=== PATIENT | male | born 1980 | race Hispanic/Latino ===

== ENCOUNTER 2017-11-28 17:40 | Emergency (ER) | payer OTHER | END 2017-11-28 18:24 | disposition home or self-care (01) | LOC: EDH 17:40 | DX: S39.012A Strain of muscle, fascia and tendon of lower back, initial encounter (principal); V89.2XXA Person injured in unspecified motor-vehicle accident, traffic, initial encounter; Y93.89 Activity, other specified; Y92.89 Other specified places as the place of occurrence of the external cause; Y99.8 Other external cause status | CPT/HCPCS: 99281 ==

== ENCOUNTER 2020-02-08 07:57 | Inpatient (IN) | payer SELFPAY ==
[~2020-02-08] VITALS: Ht 170.2 cm; Wt 91.0 kg
[2020-02-08 09:33] LABS: BASOPHILS % (AUTO) 0.3 % (0.0-5.0); EOSINOPHILS % (AUTO) 0.2 % (0.0-8.0); HEMATOCRIT 46.1 % (42-54); LYMPHOCYTES % (AUTO) 6.3 % (21.0-51.0); MEAN CORPUSCULAR HGB CONC 31.9 g/dL (32.0-36.0); MEAN CORPUSCULAR VOLUME 84.7 fL (79-99); MONOCYTES % (AUTO) 5.1 % (3.0-13.0); NEUTROPHILS % (AUTO) 87.9 % (40.0-77.0); PLATELET COUNT (AUTO) 179 K/uL (130-400); RED BLOOD CELL COUNT(AUTO) 5.44 MIL/uL (4.50-6.20); RED CELL DISTRIBUTION WIDTH 13.5 % (11.0-15.5); WHITE BLOOD COUNT (AUTO) 10.3 K/uL (4.8-10.8)
[2020-02-08 09:57] LABS: CREATININE 2.3 mg/dL (0.5-1.5); POTASSIUM 3.2 mmol/L (3.5-5.1)
[2020-02-08 10:02] LABS: ALBUMIN 2.6 g/dL (3.5-5.0); BILIRUBIN,TOTAL 3.6 mg/dL (0.2-1.0); TOTAL PROTEIN, SERUM 6.7 g/dL (6.0-8.3)
[2020-02-08] MEDS ORDERED: ZOSYN 3.375GM+NS 50ML 50 ML IV ONE ×2 (12:45→18:33)
[2020-02-08 13:43] LABS: CHOLESTEROL 265 mg/dL (<200); HDL CHOLESTEROL 122 mg/dL (29-71); LDL DIRECT 187 mg/dL (0-99); TRIGLYCERIDES 118 mg/dL (30-200)
[2020-02-08] MEDS ORDERED: HYDRALAZINE HCL 20 MG/ML VIAL IV PRN (14:00)
[2020-02-08 14:23] LABS: HEMOGLOBIN A1C 8.1 % (4.0-6.0)
[2020-02-08] MEDS ORDERED: HYDRALAZINE HCL 25 MG TABLET ONE (14:33)
[2020-02-08] MEDS ORDERED: AMLODIPINE BESYLATE 5 MG TAB ONE (14:33)
[2020-02-08] MEDS: HYDRALAZINE HCL 25 MG TABLET PO SCH ×2 (15:00→20:12)
[2020-02-08] MEDS: FOLIC ACID/VITAMIN B COMP W-C 1 CAP TAB PO SCH (15:15)
[2020-02-08 15:16] LABS: URIC ACID 6.2 mg/dL (2.6-7.2)
[2020-02-08] MEDS ORDERED: AMLODIPINE BESYLATE 5 MG TAB PO SCH (15:30)
[2020-02-08] MEDS ORDERED: INSULIN GLARGINE 100 UNITS/ML 10 ML VIAL SQ ONE (15:30)
[2020-02-08 16:15] VITALS: BP 145/95
[2020-02-08] MEDS ORDERED: INSULIN HUMULIN R 100 UNIT/ML 3ML SQ SCH (16:30)
[2020-02-08] MEDS: INSULIN HUMULIN R 100 UNIT/ML 3ML SQ SCH ×2 (16:30→21:42)
[2020-02-08] MEDS ORDERED: MORPHINE SULFATE 2 MG/ML 1ML SYG IM PRN (17:00)
[2020-02-08] MEDS ORDERED: TRAMADOL HCL 50 MG TABLET PO PRN (17:00)
[2020-02-08] MEDS ORDERED: SODIUM CHLORIDE 0.9% 1000ML 1,000 ML IV SCH (17:00)
[2020-02-08] MEDS ORDERED: LACTULOSE 20 GM/30 ML UDCUP PO PRN (17:00)
[2020-02-08] MEDS ORDERED: ONDANSETRON HCL 4 MG/2 ML VIAL IV PRN (17:00)
[2020-02-08] MEDS ORDERED: IPRATROPIUM/ALBUTEROL SULFATE 3 ML SOLUTION IH SCH (18:00)
[2020-02-08] MEDS ORDERED: POTASSIUM CHLORIDE 10% ELIXIR 20 MEQ/15 ML UDCUP PO PRN (19:00)
[2020-02-08] MEDS ORDERED: LIDOCAINE HCL-MPF 1% 2ML VIAL IV PRN (19:00)
[2020-02-08] MEDS ORDERED: POTASSIUM CHLORIDE 10MEQ/100ML 100 ML IV PRN (19:00)
[2020-02-08 19:45] VITALS: BP 153/98
[2020-02-08] MEDS: ZOSYN 3.375GM+NS 50ML 50 ML IV SCH (20:10)
[2020-02-08] MEDS: POTASSIUM CHLORIDE 20 MEQ ERTAB PO PRN ×2 (20:11→23:02)
[2020-02-08 23:17] LABS: APPEARANCE,URINE Clear (CLEAR); BILIRUBIN,URINE Small (NEGATIVE); COLOR,URINE Dark Yellow (YELLOW); GLUCOSE, URINE (UA) 250 mg/dL (NEGATIVE); KETONES,URINE Negative (NEGATIVE); LEUKOCYTE ESTERASE ,URINE Negative (NEGATIVE); NITRATE,URINE Negative (NEGATIVE); OCCULT BLOOD,URINE Negative (NEGATIVE); PH,URINE 5.5 (5.0-8.0); PROTEIN,URINE >=1000 mg/dL (NEGATIVE)
[2020-02-08 23:34] LABS: RBC,URINE 0-1 /HPF (0-1); WBC,URINE 0-1 /HPF (0-1)
[2020-02-08 23:35] LABS: BACTERIA,URINE Rare /HPF (None Seen)
[2020-02-09] VITALS (7 sets, daily range): BP systolic 130–152; BP diastolic 78–97
[2020-02-09] MEDS: POTASSIUM CHLORIDE 20 MEQ ERTAB PO PRN (01:01)
[2020-02-09] MEDS: LACTATED RINGERS 1000ML 1,000 ML IV SCH ×4 (01:02→17:30)
[2020-02-09 02:16] LABS: CREATININE,URINE RANDOM 169 mg/dL (30-135); SODIUM,URINE RANDOM 103 mmol/l (40-220)
[2020-02-09] MEDS: ZOSYN 3.375GM+NS 50ML 50 ML IV SCH ×3 (03:16→20:28)
[2020-02-09] MEDS: INSULIN HUMULIN R 100 UNIT/ML 3ML SQ SCH ×4 (04:30→20:34)
[2020-02-09 05:21] LABS: BASOPHILS % (AUTO) 0.5 % (0.0-5.0); EOSINOPHILS % (AUTO) 3.1 % (0.0-8.0); HEMATOCRIT 40.1 % (42-54); LYMPHOCYTES % (AUTO) 20.1 % (21.0-51.0); MEAN CORPUSCULAR HGB CONC 31.4 g/dL (32.0-36.0); MEAN CORPUSCULAR VOLUME 86.1 fL (79-99); MONOCYTES % (AUTO) 7.7 % (3.0-13.0); NEUTROPHILS % (AUTO) 68.4 % (40.0-77.0); PLATELET COUNT (AUTO) 174 K/uL (130-400); RED BLOOD CELL COUNT(AUTO) 4.66 MIL/uL (4.50-6.20); RED CELL DISTRIBUTION WIDTH 13.6 % (11.0-15.5); WHITE BLOOD COUNT (AUTO) 8.5 K/uL (4.8-10.8)
[2020-02-09 05:57] LABS: BILIRUBIN,TOTAL 0.7 mg/dL (0.2-1.0); CREATININE 2.2 mg/dL (0.5-1.5); MAGNESIUM 1.6 mg/dL (1.80-2.40); PHOSPHORUS 2.7 mg/dL (2.5-4.9); POTASSIUM 3.6 mmol/L (3.5-5.1); TOTAL PROTEIN, SERUM 5.4 g/dL (6.0-8.3)
[2020-02-09] MEDS ORDERED: FOLIC ACID/VITAMIN B COMP W-C 1 CAP TAB PO SCH (09:00)
[2020-02-09] MEDS: FOLIC ACID/VITAMIN B COMP W-C 1 CAP TAB PO SCH (09:25)
[2020-02-09] MEDS: HYDRALAZINE HCL 25 MG TABLET PO SCH ×2 (09:25→20:27)
[2020-02-09] MEDS: ENOXAPARIN SODIUM 30 MG/0.3 ML SQ SCH (09:26)
[2020-02-09] MEDS: FAMOTIDINE/PF 20 MG/2 ML VIAL IV SCH (09:26)
[2020-02-09] MEDS: AMLODIPINE BESYLATE 5 MG TAB PO SCH (09:26)
[2020-02-09] MEDS ORDERED: MAGNESIUM 2GM PREMIX 50ML 50 ML IV ONE ×2 (14:15→15:45)
--- NOTE | 2020-02-09 18:22 | NUR ---
cm note met with patient and states resides athome alone, independent with adls and self care. 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 dc plan is back home at co. no dc needs. Addendum: 02/09/20 at 1822 by MAYO CASILLAS CM Amended: Links added. Addendum: 02/09/20 at 1823 by MAYO CASILLAS CM provided pt with community resource clinics and rx assist programs in the area. pt verbalizes understanding. states will followup with md at co.
[2020-02-10] MEDS: LACTATED RINGERS 1000ML 1,000 ML IV SCH ×2 (00:08→10:10)
[2020-02-10] MEDS: ZOSYN 3.375GM+NS 50ML 50 ML IV SCH ×2 (02:57→12:30)
[2020-02-10 04:00] VITALS: BP 136/88
[2020-02-10] MEDS: INSULIN HUMULIN R 100 UNIT/ML 3ML SQ SCH ×2 (04:30→10:30)
[2020-02-10 06:05] LABS: BASOPHILS % (AUTO) 0.3 % (0.0-5.0); EOSINOPHILS % (AUTO) 3.2 % (0.0-8.0); HEMATOCRIT 38.6 % (42-54); MEAN CORPUSCULAR HEMOGLOBIN 27.3 pg (27.0-33.0); MEAN CORPUSCULAR HGB CONC 31.9 g/dL (32.0-36.0); MEAN CORPUSCULAR VOLUME 85.8 fL (79-99); MONOCYTES % (AUTO) 7.5 % (3.0-13.0); NEUTROPHILS % (AUTO) 70.7 % (40.0-77.0); PLATELET COUNT (AUTO) 171 K/uL (130-400); RED CELL DISTRIBUTION WIDTH 13.5 % (11.0-15.5); WHITE BLOOD COUNT (AUTO) 8.9 K/uL (4.8-10.8)
[2020-02-10 06:28] LABS: CREATININE 2.1 mg/dL (0.5-1.5); MAGNESIUM 1.9 mg/dL (1.80-2.40); POTASSIUM 3.1 mmol/L (3.5-5.1)
[2020-02-10] MEDS ORDERED: POTASSIUM CHLORIDE 20 MEQ ERTAB PO SCH (07:00)
[2020-02-10 08:00] VITALS: BP 151/92
[2020-02-10 08:26] LABS: ALBUMIN 2.1 g/dL (3.5-5.0); BILIRUBIN,DIRECT 0.1 mg/dL (0.0-0.3); BILIRUBIN,TOTAL 0.4 mg/dL (0.2-1.0); TOTAL PROTEIN, SERUM 5.4 g/dL (6.0-8.3)
[2020-02-10] MEDS: HYDRALAZINE HCL 25 MG TABLET PO SCH (08:39)
[2020-02-10] MEDS: AMLODIPINE BESYLATE 5 MG TAB PO SCH (08:39)
[2020-02-10] MEDS: FAMOTIDINE/PF 20 MG/2 ML VIAL IV SCH (08:39)
[2020-02-10] MEDS: FOLIC ACID/VITAMIN B COMP W-C 1 CAP TAB PO SCH (08:40)
[2020-02-10] MEDS: ENOXAPARIN SODIUM 30 MG/0.3 ML SQ SCH (08:40)
[2020-02-10] MEDS ORDERED: AMLO5TAB4 PO (13:22)
[2020-02-10] MEDS ORDERED: HYDR25 PO (13:22)
--- NOTE | 2020-02-10 17:27 | NUR ---
PATIENT DISCHARGE PATIENT DISCHARGED, IV DISCONTINUED, CATHLON INTACT, BLEEDING CONTROLLED, PATIENT TOLERATED WITHOUT INCIDENT. DISCUSSED WITH PATIENT THE NEED TO FOLLOW UP WITH DR. FISH AND FOR HIM TO CALL TO SCHEDULE APPOINTMENT. ADVISED PATIENT PRESCRIPTIONS WERE SENT ELECTRONICALLY TO [facility] ON [address] IN [place].
== END 2020-02-10 17:25 | disposition home or self-care (01) | DRG 445 ==
LOC: EDH 07:57 → EDHIP 07:58 → 3CH 15:59
PROVIDERS: ADMIT Internal Medicine; ATTEND Internal Medicine
DX: K80.70 Calculus of gallbladder and bile duct without cholecystitis without obstruction (principal); N17.9 Acute kidney failure, unspecified; B17.9 Acute viral hepatitis, unspecified; I16.0 Hypertensive urgency; E87.6 Hypokalemia; D64.9 Anemia, unspecified; K75.89 Other specified inflammatory liver diseases; E88.81 Metabolic syndrome and other insulin resistance; I10 Essential (primary) hypertension; E11.65 Type 2 diabetes mellitus with hyperglycemia; E66.9 Obesity, unspecified; E78.5 Hyperlipidemia, unspecified; Z68.31 Body mass index [BMI] 31.0-31.9, adult; Z83.3 Family history of diabetes mellitus; Z82.49 Family history of ischemic heart disease and other diseases of the circulatory system
CPT/HCPCS: 36415; 74181; 76705; 76770; 80048; 80053; 80061; 80074; 80076; 81001; 82150; 82570; 82948; 83036; 83605; 83690; 83735; 84100; 84145; 84156; 84300; 84443; 84484; 84550; 85025; 87040; 93005; G0378; J1650; J2543; J3475; J3490; J7120

== ENCOUNTER 2022-10-01 07:54 | Inpatient (IN) | payer OTHER ==
[~2022-10-01] VITALS: Ht 167.6 cm; Wt 99.4 kg
[~2022-10-01 07:54] MED LIST: AMLO5TAB4 PO; HYDR25 PO
[2022-10-01] MEDS ORDERED: ONDANSETRON 4MG INJ ONE (08:14)
[2022-10-01] MEDS ORDERED: ONDANSETRON 4MG INJ IVP ONE (08:30)
[2022-10-01] MEDS ORDERED: ACETAMINOPHEN 500 MG TABLET PO ONE (08:30)
[2022-10-01 08:34] LABS: BASOPHILS % (AUTO) 0.2 % (0.0-5.0); EOSINOPHILS % (AUTO) 0.3 % (0.0-8.0); HEMATOCRIT 30.9 % (42-54); LYMPHOCYTES % (AUTO) 1.1 % (21.0-51.0); MEAN CORPUSCULAR HEMOGLOBIN 27.2 pg (27.0-33.0); MEAN CORPUSCULAR HGB CONC 32.7 g/dL (32.0-36.0); MEAN CORPUSCULAR VOLUME 83.3 fL (79-99); MONOCYTES % (AUTO) 2.6 % (3.0-13.0); NEUTROPHILS % (AUTO) 95.4 % (40.0-77.0); PLATELET COUNT (AUTO) 171 K/uL (130-400); RED BLOOD CELL COUNT(AUTO) 3.71 MIL/uL (4.50-6.20); RED CELL DISTRIBUTION WIDTH 17.1 % (11.0-15.5); WHITE BLOOD COUNT (AUTO) 18.5 K/uL (4.8-10.8)
[2022-10-01 08:54] LABS: ALBUMIN 3.7 g/dL (3.5-5.0); MAGNESIUM 1.4 mg/dL (1.80-2.40); POTASSIUM 4.2 mmol/L (3.5-5.1); TOTAL PROTEIN, SERUM 7.3 g/dL (6.0-8.3)
[2022-10-01 09:00] LABS: ABG BASE EXCESS -14.8 mmol/L (-2.0-3.0); ABG HCO3 9.1 mmol/L (21.0-28.0); ABG OXYGEN SATURATION 92.4 % (95.0-99.0); ABG PCO2 19 mmHg (35-48)
[2022-10-01 09:05] LABS: CREATININE 9.5 mg/dL (0.5-1.5)
[2022-10-01] MEDS ORDERED: LIDOCAINE HCL-MPF 1% 2ML VIAL IV PRN (11:00)
[2022-10-01 11:14] LABS: APPEARANCE,URINE CLOUDY (CLEAR); BILIRUBIN,URINE NEGATIVE (NEGATIVE); COLOR,URINE LIGHT-YELLOW (YELLOW); GLUCOSE, URINE (UA) NEGATIVE (NEGATIVE); KETONES,URINE NEGATIVE (NEGATIVE); LEUKOCYTE ESTERASE ,URINE NEGATIVE Leu/uL (NEGATIVE); NITRATE,URINE NEGATIVE (NEGATIVE); OCCULT BLOOD,URINE SMALL (NEGATIVE); PH,URINE 5.5 (5.0-8.0); PROTEIN,URINE 200 mg/dL (NEGATIVE); UROBILINOGEN,URINE 0.2 mg/dL (0.2-1.0)
[2022-10-01 11:19] LABS: AMPHET/METH SCREEN,URINE NEGATIVE (NEGATIVE); BARBITURATE SCREEN, URINE NEGATIVE (NEGATIVE); BENZODIAZEPINES SCREEN,URINE NEGATIVE (NEGATIVE); CANNABINOID SCREEN,URINE NEGATIVE (NEGATIVE); COCAINE SCREEN,URINE POSITIVE (NEGATIVE); OPIATE SCREEN,URINE NEGATIVE (NEGATIVE); PHENCYCLIDINE SCREEN,URINE NEGATIVE (NEGATIVE)
[2022-10-01] MEDS: HEPARIN 5,000 UNIT VIAL SQ SCH ×2 (11:19→22:31)
[2022-10-01] MEDS: CEFEPIME HCL 2 GM VIAL IVP SCH ×2 (11:19→19:10)
[2022-10-01] MEDS ORDERED: [UNRECOGNIZED DRUG - MIXTURE] IVP SCH (11:59)
[2022-10-01] MEDS ORDERED: PHARMACY COMMUNICATION MISC SCH (12:00)
[2022-10-01] MEDS ORDERED: ROCURONIUM BROMIDE 10MG/1ML 5ML VL IV ONE (12:24)
[2022-10-01] MEDS ORDERED: ETOMIDATE 20MG VIAL IVP ONE (12:24)
[2022-10-01 13:14] LABS: HEMOGLOBIN A1C 6.4 % (4.0-6.0)
[2022-10-01 13:20] LABS: PROTEIN,URINE RANDOM 207.4 mg/dL (0-11.9)
[2022-10-01] MEDS: SODIUM BICARBONATE 650 MG TAB PO SCH ×2 (13:43→20:03)
[2022-10-01 14:30] VITALS: BP 159/79
[2022-10-01] MEDS: ACETAMINOPHEN 325 MG TAB PO PRN (15:20)
[2022-10-01] MEDS: LIDOCAINE 5% TOPICAL PATCH TP PRN (16:49)
[2022-10-01 20:00] VITALS: BP 143/94
[2022-10-01] MEDS: FUROSEMIDE 40MG VIAL IVP SCH (20:03)
[2022-10-02] VITALS: BP 131/67
[2022-10-02] MEDS: CEFEPIME HCL 2 GM VIAL IVP SCH (03:52)
[2022-10-02 04:00] VITALS: BP 146/85
[2022-10-02] MEDS: ACETAMINOPHEN 325 MG TAB PO PRN ×2 (04:12→11:57)
[2022-10-02 05:51] LABS: ALBUMIN 2.9 g/dL (3.5-5.0); CRP QUANTITATIVE 84.3 mg/L (0.00-9.0); PHOSPHORUS 7.4 mg/dL (2.5-4.9); POTASSIUM 4.3 mmol/L (3.5-5.1); TOTAL PROTEIN, SERUM 6.3 g/dL (6.0-8.3)
[2022-10-02 05:55] LABS: CREATININE 9.6 mg/dL (0.5-1.5)
[2022-10-02 06:56] LABS: B-TYPE NATRIURETIC PEPTIDE 2090 pg/mL (0-100)
[2022-10-02 08:00] VITALS: BP 118/65
[2022-10-02 08:00] LABS: BASOPHILS % (AUTO) 0.2 % (0.0-5.0); HEMATOCRIT 28.9 % (42-54); LYMPHOCYTES % (AUTO) 1.3 % (21.0-51.0); MEAN CORPUSCULAR HEMOGLOBIN 27.5 pg (27.0-33.0); MEAN CORPUSCULAR HGB CONC 33.2 g/dL (32.0-36.0); MEAN CORPUSCULAR VOLUME 82.8 fL (79-99); MONOCYTES % (AUTO) 4.4 % (3.0-13.0); NEUTROPHILS % (AUTO) 92.5 % (40.0-77.0); PLATELET COUNT (AUTO) 126 K/uL (130-400); RED BLOOD CELL COUNT(AUTO) 3.49 MIL/uL (4.50-6.20)
[2022-10-02] MEDS: FUROSEMIDE 40MG VIAL IVP SCH ×2 (08:00→19:41)
[2022-10-02 08:01] LABS: WHITE BLOOD COUNT (AUTO) 31.1 K/uL (4.8-10.8)
[2022-10-02] MEDS: HEPARIN 5,000 UNIT VIAL SQ SCH ×2 (08:01→19:43)
[2022-10-02] MEDS: SODIUM BICARBONATE 650 MG TAB PO SCH ×3 (08:01→19:42)
[2022-10-02 08:30] LABS: BAND NEUTROPHILS % (MANUAL) 3 % (0-2); LYMPHOCYTES % (MANUAL) 1 % (22-44); MONOCYTES % (MANUAL) 2 % (2-9); SEGMENTED NEUTROPHILS % 94 % (40-70)
[2022-10-02 08:31] LABS: MAN.DIFF COMMENT-IMPRESSION MANUAL DIFFERENTIAL; PLATELET MORPHOLOGY COMMENT SLIGHTLY DECREASED
[2022-10-02] MEDS ORDERED: VANCOMYCIN 1.5 GM/250 ML BAG 250 ML IV SCH (09:00)
[2022-10-02] MEDS ORDERED: VANCOMYCIN PROTOCOL PER PHARMACY IV SCH (09:00)
[2022-10-02] MEDS: ZYVOX 600 MG TAB PO SCH ×2 (11:52→19:42)
[2022-10-02 12:00] VITALS: BP 122/70
[2022-10-02] MEDS ORDERED: COMPOUND IV MISC 1 EACH IVSOLN MISC PRN (13:00)
[2022-10-02] MEDS: IRON SUCROSE COMPLEX 300 MG in 0.9% NACL 250ML 250 ML IV SCH (14:37)
[2022-10-02 16:00] VITALS: BP 135/79
[2022-10-02] MEDS ORDERED: TRAMADOL HCL 50 MG TABLET PO ONE (19:30)
[2022-10-02] MEDS ORDERED: TRAMADOL HCL 50 MG TABLET ONE (19:33)
[2022-10-02] MEDS: MAGNESIUM 2GM PREMIX 50ML 50 ML IV PRN (19:43)
[2022-10-02 20:00] VITALS: BP 153/95
[2022-10-02] MEDS: LIDOCAINE 5% TOPICAL PATCH TP PRN (21:15)
[2022-10-03] VITALS: BP 143/80
[2022-10-03 04:00] VITALS: BP 142/83
[2022-10-03] MEDS: ACETAMINOPHEN 325 MG TAB PO PRN ×2 (04:05→22:00)
[2022-10-03 04:35] LABS: BASOPHILS % (AUTO) 0.1 % (0.0-5.0); EOSINOPHILS % (AUTO) 0.6 % (0.0-8.0); LYMPHOCYTES % (AUTO) 1.5 % (21.0-51.0); MEAN CORPUSCULAR HEMOGLOBIN 27.4 pg (27.0-33.0); MEAN CORPUSCULAR HGB CONC 33.7 g/dL (32.0-36.0); MEAN CORPUSCULAR VOLUME 81.3 fL (79-99); MONOCYTES % (AUTO) 4.9 % (3.0-13.0); NEUTROPHILS % (AUTO) 91.6 % (40.0-77.0); PLATELET COUNT (AUTO) 119 K/uL (130-400); RED BLOOD CELL COUNT(AUTO) 3.32 MIL/uL (4.50-6.20); RED CELL DISTRIBUTION WIDTH 16.6 % (11.0-15.5); WHITE BLOOD COUNT (AUTO) 26.7 K/uL (4.8-10.8)
[2022-10-03 05:13] LABS: ALBUMIN 2.8 g/dL (3.5-5.0); MAGNESIUM 1.8 mg/dL (1.80-2.40)
[2022-10-03 05:27] LABS: CREATININE 9.8 mg/dL (0.5-1.5)
[2022-10-03] MEDS: MAGNESIUM 2GM PREMIX 50ML 50 ML IV PRN (05:58)
[2022-10-03 07:20] VITALS: BP 134/76
[2022-10-03] MEDS: FUROSEMIDE 40MG VIAL IVP SCH ×2 (08:58→19:42)
[2022-10-03] MEDS: SODIUM BICARBONATE 650 MG TAB PO SCH ×3 (08:59→19:42)
[2022-10-03] MEDS: HEPARIN 5,000 UNIT VIAL SQ SCH ×2 (08:59→19:43)
[2022-10-03] MEDS: ZYVOX 600 MG TAB PO SCH ×2 (08:59→19:42)
[2022-10-03 10:50] VITALS: BP 137/71
[2022-10-03] MEDS: IRON SUCROSE COMPLEX 300 MG in 0.9% NACL 250ML 250 ML IV SCH (13:01)
[2022-10-03 14:32] LABS: APPEARANCE,URINE CLEAR (CLEAR); BILIRUBIN,URINE NEGATIVE (NEGATIVE); COLOR,URINE COLORLESS (YELLOW); GLUCOSE, URINE (UA) NEGATIVE (NEGATIVE); KETONES,URINE NEGATIVE (NEGATIVE); LEUKOCYTE ESTERASE ,URINE 25 Leu/uL (NEGATIVE); NITRATE,URINE NEGATIVE (NEGATIVE); PROTEIN,URINE 30 mg/dL (NEGATIVE); UROBILINOGEN,URINE 0.2 mg/dL (0.2-1.0)
[2022-10-03 14:42] LABS: RBC,URINE 0-1 /HPF (0-1); SQUAMOUS EPITHELIAL CELL,UR RARE /HPF (0-2)
[2022-10-03 15:55] VITALS: BP 139/86
[2022-10-03 20:00] VITALS: BP 133/66
[2022-10-04] VITALS (23 sets, daily range): BP systolic 136–170; BP diastolic 66–97
[2022-10-04 05:26] LABS: HEMATOCRIT 27.7 % (42-54); MEAN CORPUSCULAR HEMOGLOBIN 27.5 pg (27.0-33.0); MEAN CORPUSCULAR HGB CONC 33.2 g/dL (32.0-36.0); MEAN CORPUSCULAR VOLUME 82.9 fL (79-99); PLATELET COUNT (AUTO) 135 K/uL (130-400); RED BLOOD CELL COUNT(AUTO) 3.34 MIL/uL (4.50-6.20); RED CELL DISTRIBUTION WIDTH 16.4 % (11.0-15.5); WHITE BLOOD COUNT (AUTO) 22.8 K/uL (4.8-10.8)
[2022-10-04 05:34] LABS: INR 1.13 (0.85-1.15); PROTHROMBIN TIME 12.2 SEC (9.6-11.6)
[2022-10-04 05:35] LABS: PARTIAL THROMBOPLASTIN TIME 39.4 SEC (26.3-35.5)
[2022-10-04 05:42] LABS: ALBUMIN 2.6 g/dL (3.5-5.0); MAGNESIUM 2.1 mg/dL (1.80-2.40); POTASSIUM 3.8 mmol/L (3.5-5.1); TOTAL PROTEIN, SERUM 6.3 g/dL (6.0-8.3)
[2022-10-04 05:51] LABS: CREATININE 10.1 mg/dL (0.5-1.5)
[2022-10-04] MEDS ORDERED: HEPARIN 10,000 UNIT/10ML (1,000 UNIT/ML) VIAL ONE (10:06)
[2022-10-04] MEDS ORDERED: LIDOCAINE HCL 400MG/20ML VIAL ONE (10:06)
[2022-10-04] MEDS: HEPARIN 5,000 UNIT VIAL SQ SCH ×2 (10:30→20:45)
[2022-10-04] MEDS: ZYVOX 600 MG TAB PO SCH ×2 (11:39→20:36)
[2022-10-04] MEDS: FUROSEMIDE 40MG VIAL IVP SCH ×2 (11:39→20:37)
[2022-10-04] MEDS: SODIUM BICARBONATE 650 MG TAB PO SCH ×3 (11:45→20:36)
[2022-10-04 16:16] LABS: HEMATOCRIT 27.5 % (42-54)
[2022-10-04 16:31] LABS: ALBUMIN 2.7 g/dL (3.5-5.0)
[2022-10-04 16:44] LABS: % IRON SATURATION 19.7 % (30-44)
[2022-10-04 16:53] LABS: CREATININE 10.1 mg/dL (0.5-1.5)
[2022-10-04] MEDS: ACETAMINOPHEN 325 MG TAB PO PRN (17:13)
[2022-10-04] MEDS: IRON SUCROSE COMPLEX 300 MG in 0.9% NACL 250ML 250 ML IV SCH (17:13)
[2022-10-04 20:48] LABS: HEPATITIS B SURFACE ANTIGEN Non-Reactive (Nonreactive)
[2022-10-05] VITALS (21 sets, daily range): BP systolic 132–163; BP diastolic 64–90
[2022-10-05] MEDS: ACETAMINOPHEN 325 MG TAB PO PRN (02:27)
[2022-10-05 04:40] LABS: BASOPHILS % (AUTO) 0.1 % (0.0-5.0); EOSINOPHILS % (AUTO) 2.1 % (0.0-8.0); HEMATOCRIT 25.3 % (42-54); LYMPHOCYTES % (AUTO) 2.9 % (21.0-51.0); MEAN CORPUSCULAR HEMOGLOBIN 27.4 pg (27.0-33.0); MEAN CORPUSCULAR HGB CONC 34.4 g/dL (32.0-36.0); MEAN CORPUSCULAR VOLUME 79.6 fL (79-99); MONOCYTES % (AUTO) 6.4 % (3.0-13.0); NEUTROPHILS % (AUTO) 87.3 % (40.0-77.0); PLATELET COUNT (AUTO) 153 K/uL (130-400); RED BLOOD CELL COUNT(AUTO) 3.18 MIL/uL (4.50-6.20); RED CELL DISTRIBUTION WIDTH 16.1 % (11.0-15.5); WHITE BLOOD COUNT (AUTO) 15.3 K/uL (4.8-10.8)
[2022-10-05 04:44] LABS: POTASSIUM 3.3 mmol/L (3.5-5.1)
[2022-10-05 04:52] LABS: B-TYPE NATRIURETIC PEPTIDE 1810 pg/mL (0-100)
[2022-10-05 05:55] LABS: CREATININE 8.6 mg/dL (0.5-1.5)
[2022-10-05] MEDS: SODIUM BICARBONATE 650 MG TAB PO SCH ×3 (09:01→19:35)
[2022-10-05] MEDS: PANTOPRAZOLE 40 MG/VIAL IVP SCH (09:02)
[2022-10-05] MEDS: FUROSEMIDE 40MG VIAL IVP SCH ×2 (09:02→19:34)
[2022-10-05] MEDS: EPOETIN ALFA-EPBX (NON-ESRD) 10,000 UNIT/ML VIAL SQ SCH (09:02)
[2022-10-05] MEDS: IRON SUCROSE COMPLEX 300 MG in 0.9% NACL 250ML 250 ML IV SCH (12:22)
[2022-10-05] MEDS: CEFAZOLIN SODIUM 1 GM VIAL IVP SCH (12:22)
[2022-10-05] MEDS: HEPARIN 5,000 UNIT VIAL SQ SCH ×2 (12:29→19:36)
[2022-10-05] MEDS: BACITRACIN 1 EACH PACKET TP SCH (14:59)
[2022-10-06] MEDS: ACETAMINOPHEN 325 MG TAB PO PRN (03:26)
[2022-10-06 04:09] VITALS: BP 146/82
[2022-10-06 05:42] LABS: BASOPHILS % (AUTO) 0.2 % (0.0-5.0); EOSINOPHILS % (AUTO) 2.7 % (0.0-8.0); HEMATOCRIT 25.1 % (42-54); LYMPHOCYTES % (AUTO) 3.8 % (21.0-51.0); MEAN CORPUSCULAR HEMOGLOBIN 27.4 pg (27.0-33.0); MEAN CORPUSCULAR HGB CONC 33.5 g/dL (32.0-36.0); MEAN CORPUSCULAR VOLUME 81.8 fL (79-99); MONOCYTES % (AUTO) 10.7 % (3.0-13.0); NEUTROPHILS % (AUTO) 81.5 % (40.0-77.0); PLATELET COUNT (AUTO) 116 K/uL (130-400); RED BLOOD CELL COUNT(AUTO) 3.07 MIL/uL (4.50-6.20); RED CELL DISTRIBUTION WIDTH 16.6 % (11.0-15.5); WHITE BLOOD COUNT (AUTO) 12.5 K/uL (4.8-10.8)
[2022-10-06 05:51] LABS: ALBUMIN 2.4 g/dL (3.5-5.0); POTASSIUM 3.2 mmol/L (3.5-5.1)
[2022-10-06 08:00] VITALS: BP 141/78
[2022-10-06] MEDS: SODIUM BICARBONATE 650 MG TAB PO SCH (08:50)
[2022-10-06] MEDS: PANTOPRAZOLE 40 MG/VIAL IVP SCH (08:50)
[2022-10-06] MEDS: FUROSEMIDE 40MG VIAL IVP SCH (08:50)
[2022-10-06] MEDS: CEFAZOLIN SODIUM 1 GM VIAL IVP SCH (08:50)
[2022-10-06] MEDS: HEPARIN 5,000 UNIT VIAL SQ SCH ×2 (11:32→22:30)
[2022-10-06] MEDS: LISINOPRIL 20 MG TABLET PO SCH (11:34)
[2022-10-06 12:00] VITALS: BP 142/81
[2022-10-06] MEDS: BACITRACIN 1 EACH PACKET TP SCH (13:47)
[2022-10-06 16:00] VITALS: BP 126/72
[2022-10-06 20:00] VITALS: BP 133/87
[2022-10-07] VITALS (48 sets, daily range): BP systolic 95–216; BP diastolic 42–151
[2022-10-07 05:07] LABS: BASOPHILS % (AUTO) 0.3 % (0.0-5.0); HEMATOCRIT 26.6 % (42-54); LYMPHOCYTES % (AUTO) 3.4 % (21.0-51.0); MEAN CORPUSCULAR HEMOGLOBIN 26.7 pg (27.0-33.0); MEAN CORPUSCULAR VOLUME 83.6 fL (79-99); MONOCYTES % (AUTO) 8.9 % (3.0-13.0); NEUTROPHILS % (AUTO) 82.5 % (40.0-77.0); PLATELET COUNT (AUTO) 129 K/uL (130-400); RED BLOOD CELL COUNT(AUTO) 3.18 MIL/uL (4.50-6.20); RED CELL DISTRIBUTION WIDTH 16.4 % (11.0-15.5); WHITE BLOOD COUNT (AUTO) 14.6 K/uL (4.8-10.8)
[2022-10-07 05:18] LABS: ALBUMIN 2.5 g/dL (3.5-5.0); POTASSIUM 3.3 mmol/L (3.5-5.1)
[2022-10-07] MEDS: LISINOPRIL 20 MG TABLET PO SCH (09:00)
[2022-10-07] MEDS: HEPARIN 5,000 UNIT VIAL SQ SCH ×2 (10:30→22:30)
[2022-10-07] MEDS: CEFAZOLIN SODIUM 1 GM VIAL IVP SCH (11:12)
[2022-10-07] MEDS: PANTOPRAZOLE 40 MG/VIAL IVP SCH (11:12)
[2022-10-07] MEDS: CARVEDILOL 6.25 MG TABLET PO SCH ×2 (11:14→21:00)
[2022-10-07] MEDS: BACITRACIN 1 EACH PACKET TP SCH (14:00)
[2022-10-07] MEDS: HEPARIN 5,000 UNIT VIAL IRRIG PRN (14:32)
[2022-10-07] MEDS ORDERED: NOREPINEPHRIN 4MG/NS 250ML 250 ML IV ONE (18:29)
[2022-10-07] MEDS ORDERED: PROPOFOL 1000 MG/100 ML 100 ML IV ONE ×2 (18:29→20:35)
[2022-10-07] MEDS ORDERED: FENTANYL 2500MCG+NS 250ML IV.SOLN IV SCH (19:30)
[2022-10-07] MEDS ORDERED: FENTANYL 2500MCG+NS 250ML 250 ML IV ONE (19:37)
[2022-10-07 20:01] LABS: ABG BASE EXCESS -1.6 mmol/L (-2.0-3.0); ABG HCO3 23.3 mmol/L (21.0-28.0); ABG PCO2 40 mmHg (35-48)
[2022-10-07 20:10] LABS: BASOPHILS % (AUTO) 0.2 % (0.0-5.0); EOSINOPHILS % (AUTO) 2.5 % (0.0-8.0); HEMATOCRIT 26.2 % (42-54); LYMPHOCYTES % (AUTO) 2.5 % (21.0-51.0); MEAN CORPUSCULAR HEMOGLOBIN 27.4 pg (27.0-33.0); MEAN CORPUSCULAR HGB CONC 31.7 g/dL (32.0-36.0); MEAN CORPUSCULAR VOLUME 86.5 fL (79-99); MONOCYTES % (AUTO) 6.3 % (3.0-13.0); PLATELET COUNT (AUTO) 115 K/uL (130-400); RED BLOOD CELL COUNT(AUTO) 3.03 MIL/uL (4.50-6.20); RED CELL DISTRIBUTION WIDTH 16.3 % (11.0-15.5); WHITE BLOOD COUNT (AUTO) 17.4 K/uL (4.8-10.8)
[2022-10-07 20:21] LABS: CREATININE 5.9 mg/dL (0.5-1.5); POTASSIUM 3.3 mmol/L (3.5-5.1)
[2022-10-07 20:22] LABS: INR 1.12 (0.85-1.15); PROTHROMBIN TIME 12.1 SEC (9.6-11.6)
[2022-10-07 20:25] LABS: ALBUMIN 2.3 g/dL (3.5-5.0); TOTAL PROTEIN, SERUM 5.9 g/dL (6.0-8.3)
[2022-10-08] VITALS (66 sets, daily range): BP systolic 107–166; BP diastolic 42–111
[2022-10-08] MEDS ORDERED: PROPOFOL 1000 MG/100 ML 100 ML IV ONE ×2 (02:18→05:05)
[2022-10-08 04:01] LABS: BASOPHILS % (AUTO) 0.2 % (0.0-5.0); HEMATOCRIT 26.7 % (42-54); INR 1.12 (0.85-1.15); LYMPHOCYTES % (AUTO) 5.8 % (21.0-51.0); MEAN CORPUSCULAR HEMOGLOBIN 27.4 pg (27.0-33.0); MEAN CORPUSCULAR HGB CONC 32.6 g/dL (32.0-36.0); MEAN CORPUSCULAR VOLUME 84.2 fL (79-99); MONOCYTES % (AUTO) 8.2 % (3.0-13.0); NEUTROPHILS % (AUTO) 76.7 % (40.0-77.0); PLATELET COUNT (AUTO) 113 K/uL (130-400); PROTHROMBIN TIME 12.1 SEC (9.6-11.6); RED BLOOD CELL COUNT(AUTO) 3.17 MIL/uL (4.50-6.20); RED CELL DISTRIBUTION WIDTH 16.2 % (11.0-15.5); WHITE BLOOD COUNT (AUTO) 11.9 K/uL (4.8-10.8)
[2022-10-08 04:02] LABS: ALBUMIN 2.3 g/dL (3.5-5.0); CREATININE 6.1 mg/dL (0.5-1.5); PARTIAL THROMBOPLASTIN TIME 31.6 SEC (26.3-35.5); PHOSPHORUS 4.9 mg/dL (2.5-4.9)
[2022-10-08] MEDS ORDERED: IOHEXOL 350 MG/ML 100ML INFUS..BTL IV ONE (05:42)
[2022-10-08 07:49] LABS: ABG BASE EXCESS 1.5 mmol/L (-2.0-3.0); ABG HCO3 25.2 mmol/L (21.0-28.0); ABG OXYGEN SATURATION 97.8 % (95.0-99.0); ABG PCO2 37 mmHg (35-48)
[2022-10-08] MEDS: EPOETIN ALFA-EPBX (NON-ESRD) 10,000 UNIT/ML VIAL SQ SCH (08:42)
[2022-10-08] MEDS: CARVEDILOL 6.25 MG TABLET PO SCH ×3 (08:42→20:32)
[2022-10-08] MEDS: POTASSIUM CHLORIDE 10MEQ/100ML 100 ML IV PRN ×2 (08:42→12:19)
[2022-10-08] MEDS: PANTOPRAZOLE 40 MG/VIAL IVP SCH (08:42)
[2022-10-08] MEDS: CEFAZOLIN SODIUM 1 GM VIAL IVP SCH (08:42)
[2022-10-08] MEDS: LISINOPRIL 20 MG TABLET PO SCH (09:45)
[2022-10-08] MEDS: HEPARIN 5,000 UNIT VIAL SQ SCH ×2 (09:46→20:38)
[2022-10-08 12:06] LABS: ABG BASE EXCESS -0.4 mmol/L (-2.0-3.0); ABG HCO3 23.8 mmol/L (21.0-28.0); ABG OXYGEN SATURATION 98.9 % (95.0-99.0); ABG PCO2 38 mmHg (35-48)
[2022-10-08] MEDS: ONDANSETRON 4MG INJ IV PRN (13:11)
[2022-10-08] MEDS: BACITRACIN 1 EACH PACKET TP SCH (14:04)
[2022-10-08] MEDS ORDERED: GLUCAGON 1MG KIT 1 MG ML IM PRN (17:30)
[2022-10-08] MEDS: DEXTROSE 50%-WATER 50 ML DISP.SYRIN IV PRN (20:32)
[2022-10-08] MEDS: INSULIN HUMULIN R 100 UNIT/ML 3ML SQ SCH (21:00)
[2022-10-09] VITALS (32 sets, daily range): BP systolic 123–188; BP diastolic 55–104
[2022-10-09 03:46] LABS: BASOPHILS % (AUTO) 0.3 % (0.0-5.0); EOSINOPHILS % (AUTO) 4.1 % (0.0-8.0); HEMATOCRIT 27.8 % (42-54); MEAN CORPUSCULAR HEMOGLOBIN 27.4 pg (27.0-33.0); MEAN CORPUSCULAR HGB CONC 30.9 g/dL (32.0-36.0); MEAN CORPUSCULAR VOLUME 88.5 fL (79-99); MONOCYTES % (AUTO) 6.3 % (3.0-13.0); PLATELET COUNT (AUTO) 120 K/uL (130-400); RED BLOOD CELL COUNT(AUTO) 3.14 MIL/uL (4.50-6.20); RED CELL DISTRIBUTION WIDTH 16.5 % (11.0-15.5); WHITE BLOOD COUNT (AUTO) 12.4 K/uL (4.8-10.8)
[2022-10-09 04:02] LABS: ALBUMIN 2.2 g/dL (3.5-5.0); CREATININE 6.4 mg/dL (0.5-1.5); POTASSIUM 3.5 mmol/L (3.5-5.1); TOTAL PROTEIN, SERUM 5.7 g/dL (6.0-8.3)
[2022-10-09] MEDS: DEXTROSE 50%-WATER 50 ML DISP.SYRIN IV PRN (06:42)
[2022-10-09] MEDS: INSULIN HUMULIN R 100 UNIT/ML 3ML SQ SCH ×4 (06:42→21:00)
[2022-10-09] MEDS: CARVEDILOL 6.25 MG TABLET PO SCH ×2 (09:00→21:11)
[2022-10-09] MEDS: LISINOPRIL 20 MG TABLET PO SCH (09:00)
[2022-10-09] MEDS: PANTOPRAZOLE 40 MG/VIAL IVP SCH (12:10)
[2022-10-09] MEDS: CEFAZOLIN SODIUM 1 GM VIAL IVP SCH (12:10)
[2022-10-09] MEDS: HEPARIN 5,000 UNIT VIAL SQ SCH ×2 (12:13→23:02)
[2022-10-09] MEDS: BACITRACIN 1 EACH PACKET TP SCH (14:00)
[2022-10-09] MEDS: HEPARIN 5,000 UNIT VIAL IRRIG PRN (17:31)
[2022-10-10] VITALS: BP 133/64
[2022-10-10] MEDS: ONDANSETRON 4MG INJ IV PRN (01:38)
[2022-10-10 04:00] VITALS: BP 151/72
[2022-10-10 06:13] LABS: HEMATOCRIT 28.2 % (42-54); MEAN CORPUSCULAR HEMOGLOBIN 27.3 pg (27.0-33.0); MEAN CORPUSCULAR HGB CONC 30.9 g/dL (32.0-36.0); MEAN CORPUSCULAR VOLUME 88.4 fL (79-99); PLATELET COUNT (AUTO) 141 K/uL (130-400); RED BLOOD CELL COUNT(AUTO) 3.19 MIL/uL (4.50-6.20); RED CELL DISTRIBUTION WIDTH 16.4 % (11.0-15.5); WHITE BLOOD COUNT (AUTO) 12.6 K/uL (4.8-10.8)
[2022-10-10 06:45] LABS: ALBUMIN 2.4 g/dL (3.5-5.0); CREATININE 5.1 mg/dL (0.5-1.5); MAGNESIUM 1.7 mg/dL (1.80-2.40); POTASSIUM 3.6 mmol/L (3.5-5.1); TOTAL PROTEIN, SERUM 6.1 g/dL (6.0-8.3)
[2022-10-10] MEDS: INSULIN HUMULIN R 100 UNIT/ML 3ML SQ SCH ×4 (06:47→21:00)
[2022-10-10 08:00] VITALS: BP 158/80
[2022-10-10 08:43] LABS: EOSINOPHILS % (MANUAL) 4 % (1-6); LYMPHOCYTES % (MANUAL) 3 % (22-44); MAN.DIFF COMMENT-IMPRESSION MANUAL DIFFERENTIAL; MONOCYTES % (MANUAL) 1 % (2-9); SEGMENTED NEUTROPHILS % 92 % (40-70)
[2022-10-10 08:44] LABS: PLATELET MORPHOLOGY COMMENT ADEQUATE
[2022-10-10] MEDS: LISINOPRIL 20 MG TABLET PO SCH (09:13)
[2022-10-10] MEDS: PANTOPRAZOLE 40 MG/VIAL IVP SCH (09:13)
[2022-10-10] MEDS: CEFAZOLIN SODIUM 1 GM VIAL IVP SCH (09:13)
[2022-10-10] MEDS: CARVEDILOL 6.25 MG TABLET PO SCH ×2 (09:14→21:11)
[2022-10-10] MEDS: HEPARIN 5,000 UNIT VIAL SQ SCH ×2 (09:45→22:42)
[2022-10-10 11:21] VITALS: BP 118/55
[2022-10-10] MEDS: MAGNESIUM 2GM PREMIX 50ML 50 ML IV PRN (11:40)
[2022-10-10] MEDS: BACITRACIN 1 EACH PACKET TP SCH (13:16)
[2022-10-10 16:00] VITALS: BP 123/59
[2022-10-10 20:00] VITALS: BP_SYST 139; BP_SYST 182; BP_DIAS 75; BP_DIAS 84
[2022-10-11] VITALS: BP 138/73
[2022-10-11 03:00] VITALS: BP 144/75
[2022-10-11] MEDS: INSULIN HUMULIN R 100 UNIT/ML 3ML SQ SCH ×4 (06:25→21:00)
[2022-10-11 06:53] LABS: BASOPHILS % (AUTO) 0.3 % (0.0-5.0); EOSINOPHILS % (AUTO) 4.5 % (0.0-8.0); HEMATOCRIT 28.6 % (42-54); LYMPHOCYTES % (AUTO) 5.7 % (21.0-51.0); MEAN CORPUSCULAR HEMOGLOBIN 27.1 pg (27.0-33.0); MEAN CORPUSCULAR HGB CONC 30.4 g/dL (32.0-36.0); MEAN CORPUSCULAR VOLUME 89.1 fL (79-99); MONOCYTES % (AUTO) 7.2 % (3.0-13.0); NEUTROPHILS % (AUTO) 80.7 % (40.0-77.0); PLATELET COUNT (AUTO) 157 K/uL (130-400); RED BLOOD CELL COUNT(AUTO) 3.21 MIL/uL (4.50-6.20); RED CELL DISTRIBUTION WIDTH 16.5 % (11.0-15.5); WHITE BLOOD COUNT (AUTO) 11.4 K/uL (4.8-10.8)
[2022-10-11 07:04] LABS: INR 1.06 (0.85-1.15); PROTHROMBIN TIME 11.5 SEC (9.6-11.6)
[2022-10-11 07:05] LABS: ALBUMIN 2.3 g/dL (3.5-5.0); CREATININE 6.1 mg/dL (0.5-1.5); POTASSIUM 3.5 mmol/L (3.5-5.1)
[2022-10-11 07:06] LABS: PARTIAL THROMBOPLASTIN TIME 31.8 SEC (26.3-35.5)
[2022-10-11 08:00] VITALS: BP 131/63
[2022-10-11] MEDS: ACETAMINOPHEN 325 MG TAB PO PRN (09:28)
[2022-10-11] MEDS: LISINOPRIL 20 MG TABLET PO SCH (09:28)
[2022-10-11] MEDS: CARVEDILOL 6.25 MG TABLET PO SCH ×2 (09:29→21:03)
[2022-10-11] MEDS: HEPARIN 5,000 UNIT VIAL SQ SCH ×2 (09:32→22:46)
[2022-10-11] MEDS: CEFAZOLIN SODIUM 1 GM VIAL IVP SCH (09:32)
[2022-10-11] MEDS: PANTOPRAZOLE 40 MG/VIAL IVP SCH (09:32)
[2022-10-11 12:00] VITALS: BP 145/77
[2022-10-11] MEDS: LEVOFLOXACIN 500 MG TABLET PO SCH (12:29)
[2022-10-11] MEDS: BACITRACIN 1 EACH PACKET TP SCH (14:00)
[2022-10-11 16:00] VITALS: BP 101/47
[2022-10-11 20:00] VITALS: BP 116/57
[2022-10-12] VITALS (20 sets, daily range): BP systolic 113–188; BP diastolic 65–88
[2022-10-12 05:30] LABS: HEMATOCRIT 28.5 % (42-54); MEAN CORPUSCULAR HEMOGLOBIN 27.5 pg (27.0-33.0); MEAN CORPUSCULAR HGB CONC 30.2 g/dL (32.0-36.0); MEAN CORPUSCULAR VOLUME 91.1 fL (79-99); PLATELET COUNT (AUTO) 164 K/uL (130-400); RED BLOOD CELL COUNT(AUTO) 3.13 MIL/uL (4.50-6.20); RED CELL DISTRIBUTION WIDTH 16.6 % (11.0-15.5); WHITE BLOOD COUNT (AUTO) 11.5 K/uL (4.8-10.8)
[2022-10-12 05:43] LABS: INR 1.05 (0.85-1.15); PROTHROMBIN TIME 11.4 SEC (9.6-11.6)
[2022-10-12 05:46] LABS: ALBUMIN 2.3 g/dL (3.5-5.0); CREATININE 6.3 mg/dL (0.5-1.5); PHOSPHORUS 5.9 mg/dL (2.5-4.9); POTASSIUM 3.5 mmol/L (3.5-5.1); TOTAL PROTEIN, SERUM 5.9 g/dL (6.0-8.3)
[2022-10-12 06:36] LABS: BAND NEUTROPHILS % (MANUAL) 4 % (0-2); BASOPHILS % (MANUAL) 1 % (0-2); EOSINOPHILS % (MANUAL) 2 % (1-6); LYMPHOCYTES % (MANUAL) 3 % (22-44); MAN.DIFF COMMENT-IMPRESSION MANUAL DIFFERENTIAL; MONOCYTES % (MANUAL) 6 % (2-9); PLATELET MORPHOLOGY COMMENT ADEQUATE; SEGMENTED NEUTROPHILS % 84 % (40-70)
[2022-10-12] MEDS: INSULIN HUMULIN R 100 UNIT/ML 3ML SQ SCH ×4 (06:37→20:46)
[2022-10-12] MEDS: CEFAZOLIN SODIUM 1 GM VIAL IVP SCH (09:00)
[2022-10-12] MEDS: CARVEDILOL 6.25 MG TABLET PO SCH ×2 (09:00→19:39)
[2022-10-12] MEDS: PANTOPRAZOLE 40 MG/VIAL IVP SCH (09:00)
[2022-10-12] MEDS: LISINOPRIL 20 MG TABLET PO SCH (09:00)
[2022-10-12] MEDS: ACETAMINOPHEN 325 MG TAB PO PRN (09:01)
[2022-10-12] MEDS: HEPARIN 5,000 UNIT VIAL SQ SCH ×2 (10:30→19:40)
[2022-10-12] MEDS: LEVOFLOXACIN 500 MG TABLET PO SCH (12:35)
[2022-10-12] MEDS: HEPARIN 5,000 UNIT VIAL IRRIG PRN (13:16)
[2022-10-12] MEDS: EPOETIN ALFA-EPBX (NON-ESRD) 10,000 UNIT/ML VIAL SQ SCH (14:09)
[2022-10-12] MEDS: BACITRACIN 1 EACH PACKET TP SCH (14:09)
[2022-10-13] VITALS: BP 149/72
[2022-10-13 04:00] VITALS: BP 161/72
[2022-10-13] MEDS: INSULIN HUMULIN R 100 UNIT/ML 3ML SQ SCH ×4 (05:30→21:00)
[2022-10-13 05:55] LABS: HEMATOCRIT 29.8 % (42-54); MEAN CORPUSCULAR HGB CONC 30.2 g/dL (32.0-36.0); MEAN CORPUSCULAR VOLUME 89.5 fL (79-99); RED BLOOD CELL COUNT(AUTO) 3.33 MIL/uL (4.50-6.20); RED CELL DISTRIBUTION WIDTH 16.6 % (11.0-15.5); WHITE BLOOD COUNT (AUTO) 10.6 K/uL (4.8-10.8)
[2022-10-13 06:20] LABS: ALBUMIN 2.4 g/dL (3.5-5.0); CREATININE 5.3 mg/dL (0.5-1.5); POTASSIUM 3.6 mmol/L (3.5-5.1)
[2022-10-13 08:00] VITALS: BP 153/79
[2022-10-13] MEDS: LISINOPRIL 20 MG TABLET PO SCH (09:16)
[2022-10-13] MEDS: PANTOPRAZOLE 40 MG/VIAL IVP SCH (09:16)
[2022-10-13] MEDS: CARVEDILOL 6.25 MG TABLET PO SCH ×2 (09:18→19:47)
[2022-10-13] MEDS: CEFAZOLIN SODIUM 1 GM VIAL IVP SCH (09:23)
[2022-10-13 11:47] VITALS: BP 137/75
[2022-10-13] MEDS: HEPARIN 5,000 UNIT VIAL SQ SCH ×2 (12:03→19:49)
[2022-10-13] MEDS: LEVOFLOXACIN 500 MG TABLET PO SCH (12:06)
[2022-10-13] MEDS: BACITRACIN 1 EACH PACKET TP SCH (12:09)
[2022-10-13] MEDS: ACETAMINOPHEN 325 MG TAB PO PRN (14:17)
[2022-10-13 15:44] VITALS: BP 122/65
[2022-10-13 19:00] VITALS: BP 135/62
[2022-10-14] VITALS (41 sets, daily range): BP systolic 126–176; BP diastolic 56–99
[2022-10-14 05:27] LABS: HEMATOCRIT 28.9 % (42-54); MEAN CORPUSCULAR HGB CONC 30.4 g/dL (32.0-36.0); RED BLOOD CELL COUNT(AUTO) 3.14 MIL/uL (4.50-6.20); RED CELL DISTRIBUTION WIDTH 16.4 % (11.0-15.5); WHITE BLOOD COUNT (AUTO) 10.5 K/uL (4.8-10.8)
[2022-10-14 05:38] LABS: INR 1.09 (0.85-1.15); PROTHROMBIN TIME 11.8 SEC (9.6-11.6)
[2022-10-14 05:40] LABS: PARTIAL THROMBOPLASTIN TIME 31.2 SEC (26.3-35.5)
[2022-10-14] MEDS: INSULIN HUMULIN R 100 UNIT/ML 3ML SQ SCH ×3 (05:41→19:29)
[2022-10-14 05:47] LABS: ALBUMIN 2.4 g/dL (3.5-5.0); CREATININE 6.3 mg/dL (0.5-1.5); MAGNESIUM 1.7 mg/dL (1.80-2.40); POTASSIUM 3.8 mmol/L (3.5-5.1); TOTAL PROTEIN, SERUM 5.9 g/dL (6.0-8.3)
[2022-10-14] MEDS ORDERED: HEPARIN 1,000 UNIT VIAL ONE (09:56)
[2022-10-14] MEDS ORDERED: LIDOCAINE HCL 1% MDV 50ML VIAL ONE (09:56)
[2022-10-14] MEDS: CEFAZOLIN SODIUM 1 GM VIAL IVP SCH (11:07)
[2022-10-14] MEDS: PANTOPRAZOLE 40 MG/VIAL IVP SCH (11:07)
[2022-10-14] MEDS: CARVEDILOL 6.25 MG TABLET PO SCH ×2 (11:07→19:25)
[2022-10-14] MEDS: LISINOPRIL 20 MG TABLET PO SCH (11:07)
[2022-10-14] MEDS: HEPARIN 5,000 UNIT VIAL SQ SCH ×2 (11:17→22:01)
[2022-10-14] MEDS: BACITRACIN 1 EACH PACKET TP SCH (14:00)
[2022-10-14] MEDS ORDERED: CEFAZOLIN SODIUM 1 GM VIAL ONE ×2 (15:34→17:33)
[2022-10-14] MEDS ORDERED: LIDOCAINE HCL 1% 20 ML VIAL ONE (16:08)
[2022-10-14] MEDS ORDERED: BUPIVACAINE/PF 0.5% 10ML VIAL ONE (16:08)
[2022-10-14] MEDS: HEPARIN 5,000 UNIT VIAL IRRIG PRN (16:26)
[2022-10-14] MEDS ORDERED: CEFAZOLIN SODIUM 1 GM VIAL IVP PRN (17:00)
[2022-10-14] MEDS ORDERED: PROPOFOL 10 MG/ML 20ML VIAL IV ONE (17:20)
[2022-10-14] MEDS ORDERED: FENTANYL CITRATE PF 50 MCG/1 ML 2ML VIAL ONE (17:20)
[2022-10-14] MEDS ORDERED: EPHEDRINE SULFATE 50 MG/ML AMPULE ONE (17:38)
[2022-10-14] MEDS ORDERED: PROTAMINE SULFATE 10 MG/ML 5 ML VIAL ONE (18:07)
[2022-10-14] MEDS ORDERED: ONDANSETRON 4MG INJ ONE (18:20)
[2022-10-14] MEDS ORDERED: TRAMADOL HCL 50 MG TABLET PO PRN ×2 (18:30)
[2022-10-14] MEDS ORDERED: ACETAMINOPHEN 325 MG TAB PO PRN (18:30)
[2022-10-14] MEDS: LEVOFLOXACIN 500 MG TABLET PO SCH (19:24)
[2022-10-15 00:09] VITALS: BP 162/78
[2022-10-15 01:09] VITALS: BP 156/77
[2022-10-15 03:42] VITALS: BP 150/68
[2022-10-15] MEDS: INSULIN HUMULIN R 100 UNIT/ML 3ML SQ SCH ×3 (06:00→21:00)
[2022-10-15 06:34] LABS: MEAN CORPUSCULAR VOLUME 90.3 fL (79-99); PLATELET COUNT (AUTO) 197 K/uL (130-400); RED BLOOD CELL COUNT(AUTO) 3.21 MIL/uL (4.50-6.20); RED CELL DISTRIBUTION WIDTH 16.6 % (11.0-15.5); WHITE BLOOD COUNT (AUTO) 9.7 K/uL (4.8-10.8)
[2022-10-15 06:47] LABS: ALBUMIN 2.2 g/dL (3.5-5.0); ASPARTATE AMINOTRANSFERASE 21 U/L (10-37); CARBON DIOXIDE 28 mmol/L (21-32); CHLORIDE 98 mmol/L (101-111); CREATININE 5.6 mg/dL (0.5-1.5); GLOMERULAR FILTR. RATE CALC 12 mL/min (>60); GLUCOSE,RANDOM 97 mg/dL (70-105); POTASSIUM 3.9 mmol/L (3.5-5.1); SODIUM SERUM 134 mmol/L (136-145); TOTAL PROTEIN, SERUM 5.8 g/dL (6.0-8.3); UREA NITROGEN, BLOOD 43 mg/dL (7-18)
[2022-10-15 06:49] LABS: ALANINE AMINOTRANSFERASE < 6 U/L (12-78)
[2022-10-15 07:51] LABS: EOSINOPHILS % (MANUAL) 5 % (1-6); LYMPHOCYTES % (MANUAL) 7 % (22-44); MAN.DIFF COMMENT-IMPRESSION MANUAL DIFFERENTIAL; MONOCYTES % (MANUAL) 6 % (2-9); SEGMENTED NEUTROPHILS % 82 % (40-70)
[2022-10-15] MEDS ORDERED: LEVO-70 PO (08:30)
[2022-10-15] MEDS ORDERED: LISI20TA24 PO (08:30)
[2022-10-15] MEDS ORDERED: CARV6.2579 PO (08:30)
[2022-10-15] MEDS: EPOETIN ALFA-EPBX (NON-ESRD) 10,000 UNIT/ML VIAL SQ SCH (08:33)
[2022-10-15] MEDS: PANTOPRAZOLE 40 MG/VIAL IVP SCH (08:33)
[2022-10-15] MEDS: LISINOPRIL 20 MG TABLET PO SCH (08:34)
[2022-10-15] MEDS: CARVEDILOL 6.25 MG TABLET PO SCH ×2 (08:34→20:37)
[2022-10-15] MEDS: CEFAZOLIN SODIUM 1 GM VIAL IVP SCH (08:34)
[2022-10-15] MEDS: MAGNESIUM 2GM PREMIX 50ML 50 ML IV PRN (09:15)
[2022-10-15] MEDS: HEPARIN 5,000 UNIT VIAL SQ SCH ×2 (11:04→22:00)
[2022-10-15] MEDS: LEVOFLOXACIN 500 MG TABLET PO SCH (12:22)
[2022-10-15 16:00] VITALS: BP 146/71
[2022-10-15 20:00] VITALS: BP 135/71
[2022-10-16] VITALS (18 sets, daily range): BP systolic 133–163; BP diastolic 64–94
[2022-10-16 06:23] LABS: HEMATOCRIT 27.8 % (42-54); MEAN CORPUSCULAR HEMOGLOBIN 27.7 pg (27.0-33.0); MEAN CORPUSCULAR HGB CONC 30.2 g/dL (32.0-36.0); MEAN CORPUSCULAR VOLUME 91.7 fL (79-99); PLATELET COUNT (AUTO) 183 K/uL (130-400); RED BLOOD CELL COUNT(AUTO) 3.03 MIL/uL (4.50-6.20); RED CELL DISTRIBUTION WIDTH 16.3 % (11.0-15.5)
[2022-10-16 06:36] LABS: CREATININE 6.3 mg/dL (0.5-1.5); POTASSIUM 4.1 mmol/L (3.5-5.1)
[2022-10-16] MEDS: INSULIN HUMULIN R 100 UNIT/ML 3ML SQ SCH ×3 (06:51→16:23)
[2022-10-16 07:27] LABS: BASOPHILS % (MANUAL) 3 % (0-2); EOSINOPHILS % (MANUAL) 5 % (1-6); LYMPHOCYTES % (MANUAL) 5 % (22-44); MAN.DIFF COMMENT-IMPRESSION MANUAL DIFFERENTIAL; MONOCYTES % (MANUAL) 2 % (2-9); PLATELET MORPHOLOGY COMMENT ADEQUATE; SEGMENTED NEUTROPHILS % 85 % (40-70)
[2022-10-16] MEDS: BACITRACIN 1 EACH PACKET TP SCH ×2 (07:56→14:49)
[2022-10-16] MEDS: PANTOPRAZOLE 40 MG/VIAL IVP SCH (08:56)
[2022-10-16] MEDS: CARVEDILOL 6.25 MG TABLET PO SCH (08:56)
[2022-10-16] MEDS: LISINOPRIL 20 MG TABLET PO SCH (08:56)
[2022-10-16] MEDS: CEFAZOLIN SODIUM 1 GM VIAL IVP SCH (08:56)
[2022-10-16] MEDS: HEPARIN 5,000 UNIT VIAL SQ SCH (11:07)
[2022-10-16] MEDS: HEPARIN 5,000 UNIT VIAL IRRIG PRN (12:22)
[2022-10-16] MEDS: LEVOFLOXACIN 500 MG TABLET PO SCH (12:43)
== END 2022-10-16 16:30 | disposition home or self-care (01) | DRG 853 ==
LOC: EDH 07:54 → EDHIP 07:55 → UNDOADMIN 10:30 → EDHIP 10:30 → 4DH 14:44 → 2CH 10-07 19:16 → 3CH 10-09 10:49
PROVIDERS: ADMIT Hospitalist; ATTEND Hospitalist
PROC: 05HY33Z Insertion of Infusion Device into Upper Vein, Percutaneous Approach (ICD-10-PCS; 2022-10-04)
PROC: 5A1D70Z Performance of Urinary Filtration, Intermittent, Less than 6 Hours Per Day (ICD-10-PCS; 2022-10-04)
PROC: 5A1D70Z Performance of Urinary Filtration, Intermittent, Less than 6 Hours Per Day (ICD-10-PCS; 2022-10-05)
PROC: 5A1D70Z Performance of Urinary Filtration, Intermittent, Less than 6 Hours Per Day (ICD-10-PCS; 2022-10-07)
PROC: 5A1935Z Respiratory Ventilation, Less than 24 Consecutive Hours (ICD-10-PCS; 2022-10-07)
PROC: 0BH17EZ Insertion of Endotracheal Airway into Trachea, Via Natural or Artificial Opening (ICD-10-PCS; 2022-10-07)
PROC: 5A1D70Z Performance of Urinary Filtration, Intermittent, Less than 6 Hours Per Day (ICD-10-PCS; 2022-10-09)
PROC: 5A1D70Z Performance of Urinary Filtration, Intermittent, Less than 6 Hours Per Day (ICD-10-PCS; 2022-10-12)
PROC: 0JH63XZ Insertion of Tunneled Vascular Access Device into Chest Subcutaneous Tissue and Fascia, Percutaneous Approach (ICD-10-PCS; 2022-10-14)
PROC: 02H633Z Insertion of Infusion Device into Right Atrium, Percutaneous Approach (ICD-10-PCS; 2022-10-14)
PROC: 5A1D70Z Performance of Urinary Filtration, Intermittent, Less than 6 Hours Per Day (ICD-10-PCS; 2022-10-14)
PROC: 031 Upper Arteries, Bypass (ICD-10-PCS; principal; 2022-10-14 17:09)
PROC: 5A1D70Z Performance of Urinary Filtration, Intermittent, Less than 6 Hours Per Day (ICD-10-PCS; 2022-10-16)
DX: A41.9 Sepsis, unspecified organism (principal); I50.43 Acute on chronic combined systolic (congestive) and diastolic (congestive) heart failure; J18.9 Pneumonia, unspecified organism; Z20.822 Contact with and (suspected) exposure to COVID-19; N18.6 End stage renal disease; J96.01 Acute respiratory failure with hypoxia; J69.0 Pneumonitis due to inhalation of food and vomit; J96.91 Respiratory failure, unspecified with hypoxia; N17.9 Acute kidney failure, unspecified; E87.21 Acute metabolic acidosis; L03.116 Cellulitis of left lower limb; L03.115 Cellulitis of right lower limb; I42.9 Cardiomyopathy, unspecified; I13.2 Hypertensive heart and chronic kidney disease with heart failure and with stage 5 chronic kidney disease, or end stage renal disease; B95.61 Methicillin susceptible Staphylococcus aureus infection as the cause of diseases classified elsewhere; D64.9 Anemia, unspecified; E11.65 Type 2 diabetes mellitus with hyperglycemia; F14.10 Cocaine abuse, uncomplicated; E11.22 Type 2 diabetes mellitus with diabetic chronic kidney disease; E83.42 Hypomagnesemia; E66.01 Morbid (severe) obesity due to excess calories; Z99.2 Dependence on renal dialysis; Z68.35 Body mass index [BMI] 35.0-35.9, adult; Z83.3 Family history of diabetes mellitus; Z86.718 Personal history of other venous thrombosis and embolism; Z91.199 Patient's noncompliance with other medical treatment and regimen due to unspecified reason
CPT/HCPCS: 31500; 36415; 36556; 36581; 36600; 70496; 71045; 71250; 73630; 74176; 76770; 77001; 80048; 80053; 80061; 80305; 81001; 82010; 82040; 82140; 82435; 82550; 82565; 82570; 82728; 82803; 82947; 82948; 83036; 83540; 83550; 83605; 83735; 83880; 83970; 84100; 84132; 84145; 84156; 84295; 84484; 84520; 85014; 85018; 85025; 85027; 85610; 85651; 85730; 86140; 86701; 86704; 86706; 86850; 86900; 86901; 87040; 87070; 87071; 87076; 87077; 87088; 87186; 87205; 87340; 87390; 87635; 87804; 90935; 92610; 92950; 93005; 93306; 93356; 93970; 93971; 94002; 94003; 96365; 96375; 97039; C1750; C1752; C9113; C9803; G0378; J0690; J0692; J1644; J1756; J1940; J2405; J2704; J2720; J3010; J3475; J3490; J7030; J7050; J7070; Q9967

== ENCOUNTER 2023-01-04 21:00 | Emergency (ER) | payer OTHER ==
[~2023-01-04] VITALS: Ht 170.2 cm; Wt 82.1 kg
[~2023-01-04 21:00] MED LIST changes: -AMLO5TAB4 PO; +CARV6.2579 PO; -HYDR25 PO; +LEVO-70 PO; +LISI20TA24 PO
[2023-01-04 22:09] LABS: BASOPHILS % (AUTO) 0.3 % (0.0-5.0); EOSINOPHILS % (AUTO) 0.5 % (0.0-8.0); HEMATOCRIT 44.1 % (42-54); LYMPHOCYTES % (AUTO) 1.7 % (21.0-51.0); MEAN CORPUSCULAR HEMOGLOBIN 28.2 pg (27.0-33.0); MEAN CORPUSCULAR HGB CONC 32.4 g/dL (32.0-36.0); MONOCYTES % (AUTO) 5.9 % (3.0-13.0); NEUTROPHILS % (AUTO) 91.1 % (40.0-77.0); PLATELET COUNT (AUTO) 102 K/uL (130-400); RED BLOOD CELL COUNT(AUTO) 5.07 MIL/uL (4.50-6.20); RED CELL DISTRIBUTION WIDTH 16.8 % (11.0-15.5); WHITE BLOOD COUNT (AUTO) 19.9 K/uL (4.8-10.8)
[2023-01-04 22:37] LABS: ALBUMIN 3.3 g/dL (3.5-5.0); MAGNESIUM 2.1 mg/dL (1.80-2.40); POTASSIUM 5.5 mmol/L (3.5-5.1); TOTAL PROTEIN, SERUM 7.3 g/dL (6.0-8.3)
[2023-01-04 22:55] LABS: CREATININE 10.3 mg/dL (0.5-1.5)
[2023-01-04 22:56] LABS: INFLUENZA TYPE A NEGATIVE FOR TYPE A (NEG)
[2023-01-04 22:57] LABS: INFLUENZA TYPE B NEGATIVE FOR TYPE B (NEG)
[2023-01-04] MEDS ORDERED: ACETAMINOPHEN 325 MG TAB PO ONE (23:00)
[2023-01-04 23:03] LABS: B-TYPE NATRIURETIC PEPTIDE 173 pg/mL (0-100)
[2023-01-05 01:29] VITALS: BP 120/70
== END 2023-01-05 01:53 | disposition home or self-care (01) ==
LOC: EDH 21:00
DX: B34.9 Viral infection, unspecified (principal); R50.9 Fever, unspecified; I10 Essential (primary) hypertension; E11.9 Type 2 diabetes mellitus without complications; Z20.822 Contact with and (suspected) exposure to COVID-19; Z79.899 Other long term (current) drug therapy; Z98.890 Other specified postprocedural states
CPT/HCPCS: 99285; 71045; 87635; 83735; 84484; 80053; 83880; 83690; 85025; 87040 ×2; 87804 ×2; 83605; 36415; 93005; C9803